=== PATIENT | female | born 1950 | race Caucasian/White ===

== ENCOUNTER → 2020-02-11 13:15 | Outpatient (BNVA) | payer MEDICARE, SELFPAY | PROVIDERS: PCP Nurse Practitioner; Visit Provider Hospitalist | DX: Z76.89 Persons encountering health services in other specified circumstances (principal) | CPT/HCPCS: Q3014 ==

== ENCOUNTER → 2020-05-12 13:00 | Outpatient (BNVA) | payer MEDICARE, SELFPAY | PROVIDERS: PCP Nurse Practitioner; Visit Provider Hospitalist | DX: J45.50 Severe persistent asthma, uncomplicated (principal); J30.9 Allergic rhinitis, unspecified; J40 Bronchitis, not specified as acute or chronic | CPT/HCPCS: 99212 ==

== ENCOUNTER → 2020-09-04 14:17 | Outpatient (BNVA) | payer MEDICARE, SELFPAY | PROVIDERS: PCP Nurse Practitioner; Visit Provider Hospitalist | DX: J30.9 Allergic rhinitis, unspecified (principal); J40 Bronchitis, not specified as acute or chronic; J45.50 Severe persistent asthma, uncomplicated; M62.838 Other muscle spasm | CPT/HCPCS: 99212 ==

== ENCOUNTER → 2020-10-27 13:51 | Outpatient (BNVA) | payer MEDICARE, SELFPAY | PROVIDERS: PCP Nurse Practitioner; Visit Provider Hospitalist | DX: Z01.811 Encounter for preprocedural respiratory examination (principal); J45.40 Moderate persistent asthma, uncomplicated; J30.9 Allergic rhinitis, unspecified; J40 Bronchitis, not specified as acute or chronic; R07.9 Chest pain, unspecified; R63.4 Abnormal weight loss; F32.9 Major depressive disorder, single episode, unspecified; Z88.8 Allergy status to other drugs, medicaments and biological substances; Z79.52 Long term (current) use of systemic steroids | CPT/HCPCS: 99212 ==

== ENCOUNTER → 2021-04-23 13:19 | Outpatient (BNVA) | payer MEDICARE, SELFPAY | PROVIDERS: PCP Nurse Practitioner; Visit Provider Hospitalist | DX: Z23 Encounter for immunization (principal); J45.50 Severe persistent asthma, uncomplicated; J30.9 Allergic rhinitis, unspecified | CPT/HCPCS: 90471; 90732; 99212 ==

== ENCOUNTER → 2022-02-24 10:45 | Outpatient (BNVA) | payer MEDICARE, MEDICAID, SELFPAY | PROVIDERS: PCP Nurse Practitioner; Visit Provider Hospitalist | DX: J45.50 Severe persistent asthma, uncomplicated (principal); J30.9 Allergic rhinitis, unspecified; Z79.899 Other long term (current) drug therapy | CPT/HCPCS: 99212 ==

== ENCOUNTER 2022-10-27 11:17 | Outpatient (AMB) | payer MEDICARE, MEDICAID, SELFPAY ==
[2022-10-27 11:21] VITALS: BP 122/70; PULSE 89; O2SAT 97; BMI 30.3
--- NOTE | 2022-10-27 11:21 | MHC.OFFVIS ---
Intake Vital Signs 10/27/22 11:21 Height 4 ft 11 in Weight 150 lb BMI 30.3 BP 122/70 Blood Pressure Location Lt brachial Position Sitting Pulse 89 Pulse Source Pulse Oximeter Pulse Oximetry (%) 97 Oxygen Delivery Method Room Air Intake Visit Reasons: dyspnea Speech Language Pathologist Prn Required: No Allergies zolpidem [From AMBIEN] Allergy (Severe, Verified 10/27/22 11:24) HALLUCINATIONS HPI HPI Comments History of Present Illness Details The patient is a 72 qlt-yaqy-ojw woman with known moderate persistent asthma in addition to significant allergic rhinitis and allergic asthma. Recently the last month she had worsening respiratory symptoms require prednisone antibiotics. She has been having a productive cough productive of yellow sputum. Overall gotten a lot better. Now she is trying to recover from her surgery that she had in her foot. She has been having to use a cane and also a walker. She is having significant discomfort. She has been very depressed due to this. Her respiratory status has been better overall. She is continue her respiratory regimen. She is continue the theophylline. At this point we have to check a theophylline level. 04/23/2021 the patient is here for a pulmonary follow-up visit. Overall she is doing well. She continues on the allergy shots in addition to Xolair. We had checked her CBC but no evidence of any eosinophilia to suggest any other biologics. She did have pulmonary function studies demonstrating no obstructive nor restrictive ventilatory defects. The patient continues on the Advair. she had been on Daliresp but she stopped it due to adverse effects. However, while being off it she has felt more chest congestion. She felt better on a from a respiratory status. Therefore will go ahead and start her on the lower dose of 250 mcg which she can take daily. If she cannot take it daily she can decrease it to every other day. 02/24/2022 the patient is here for pulmonary follow-up visit. The patient overall has been doing okay. She does complaint of eyes excessive chest congestion with clear white mucus. She typically is clearing her throat because of the congestion. It makes her cough. Moderate severity. She was started on Daliresp but it does not seem to be improving but cough issue. It is also resulting significant weight loss. Therefore she has been using it only every other day or so. But because of the weight loss she is concerned. Therefore will go ahead and stop it. Will try ZTX times a week for a month and see if that is of any benefit. In the meantime she does continue with respiratory therapy and she also continues with her Xolair injections. 10/27/2022 the patient is here for pulmonary follow-up visit. Overall the patient is doing well from a respiratory status. She stopped the Xolair due to insurance issues. Although she is still using or continuing with the allergy shots. has been symptoms have been controlled with current maintenance therapy. She has not required any prednisone. She does use her rescue inhaler about a couple times a week. In addition to that she is been noticing increasing nasal congestion. Resulting a postnasal drip. Moderate severity. She is not using any nasal therapy at this time. [facility] Medical History (Updated 10/27/20 @ 21:13 by Adan Abdi MD) Pre-op chest exam Chronic allergic rhinitis Asthma Social History (Updated 09/04/20 @ 14:42 by Anitra Bro Allie) Patient Tobacco Use Status: Never used Tobacco Review of Systems Const Denies headache(s), Denies night sweats and Reports weight loss ENT Denies change in voice, Denies headache(s), Denies lip swelling, Denies mouth pain, Reports nasal congestion, Reports nasal discharge, Reports post nasal drip and Denies tongue swelling Card Denies chest pain Resp Denies chest congestion, Reports cough and Denies wheezing GI Denies abdominal pain Musc Denies no additional complaints, Reports back pain, Reports myalgias, Reports limited range of motion and Reports muscle cramps Neuro Denies Neuro-related abnormal movements and Denies headache(s) Psych Denies no additional complaints and Reports depression Porter/Lymph Denies easy bleeding and Denies lymphadenopathy Aller/Immun Denies lip swelling, Denies tongue swelling and Denies wheezing Physical Exam Vital Signs: Last Vital Signs Pulse 89 10/27/22 11:21 BP 122/70 10/27/22 11:21 Pulse Ox 97 10/27/22 11:21 Oxygen Delivery Method Room Air 10/27/22 11:21 BMI result Body Mass Index 30.3 Const General: alert Eyes Pupils: Equal, round and reactive pupils present Neck Neck: Yes normal visual inspection, Yes full ROM, Yes no lymphadenopathy and Yes tender Chest Chest palpation & inspection: normal inspection of the chest Resp Auscultation: no wheezes and diminished lung sounds Cardio Rate: regular rate Rhythm: regular rhythm Heart sounds: S1 normal heart sound present and S2 normal heart sound present GI Palpation (GI): Soft to palpation and nontender Auscultation: normal bowel sounds General: Yes no CVA tenderness Back/Spine/Pelvis Back: no CVA tenderness Skin General skin exam: rashes and/or lesions noted Neuro Cranial nerves: Yes Equal, round and reactive pupils present Assessment & Plan Assessment & Plan (1) Chronic allergic rhinitis: Code(s): J30.9 - Allergic rhinitis, unspecified (2) Asthma: Code(s): J45.909 - Unspecified asthma, uncomplicated Qualifiers: Asthma complication type: unspecified Asthma persistence: persistent Asthma severity: severe Qualified Code(s): J45.50 - Severe persistent asthma, uncomplicated Plan Continue Advair HFA continue Spiriva Respimat NATHANAEL as needed start Fluticasone nasal spray stopped Daliresp 250mcg stopped Azithromycin MWF stopped Xolair, still doing allergy shots. If worsens consider dupixent Needs to have CXR if no better or during her f/u visit follow-up in 6 months Medications: New fluticasone propionate 50 mcg/actuation 2 sprays intranasal DAILY 30 days 15.8 mL 11RF J31.0 - Chronic rhinitis Coding Level of Care Code Est Pt Level 4 (06034) Diagnoses Chronic allergic rhinitis J30.9 Severe persistent asthma, unspecified whether complicated J45.50 Asthma complication type: unspecified Asthma persistence: persistent Asthma severity: severe Time Spent (min) 17
== END 2022-10-27 11:39 | disposition home or self-care (01) ==
PROVIDERS: PCP Nurse Practitioner; Visit Provider Hospitalist
DX: J30.9 Allergic rhinitis, unspecified (principal); J45.50 Severe persistent asthma, uncomplicated
CPT/HCPCS: 99214

== ENCOUNTER → 2022-10-27 11:17 | Outpatient (BNVA) | payer MEDICARE, MEDICAID, SELFPAY | PROVIDERS: PCP Nurse Practitioner; Visit Provider Hospitalist | DX: J45.50 Severe persistent asthma, uncomplicated (principal); J30.9 Allergic rhinitis, unspecified | CPT/HCPCS: 99212 ==

== ENCOUNTER 2023-04-29 10:48 | Outpatient (AMB) | payer MEDICARE, MEDICAID, SELFPAY ==
[2023-04-29 10:53] VITALS: BP 120/68; PULSE 75; O2SAT 99; BMI 31.1
--- NOTE | 2023-04-29 10:53 | A.OFFVIS_ITS ---
Intake Vital Signs 04/29/23 10:53 Height 4 ft 11 in Weight 154 lb BMI 31.1 BP 120/68 Blood Pressure Location Lt brachial Position Sitting Pulse 75 Pulse Source Pulse Oximeter Pulse Oximetry (%) 99 Oxygen Delivery Method Room Air Intake Visit Reasons: dyspnea Roulette Dealer Required: No Allergies zolpidem [From AMBIEN] Allergy (Severe, Verified 04/29/23 10:56) HALLUCINATIONS HPI HPI Comments History of Present Illness Details The patient is a 73 vaf-[id number] woman with known moderate persistent asthma in addition to significant allergic rhinitis and allergic asthma. Recently the last month she had worsening respiratory symptoms require prednisone antibiotics. She has been having a productive cough productive of yellow sputum. Overall gotten a lot better. Now she is trying to recover from her surgery that she had in her foot. She has been having to use a cane and also a walker. She is having significant discomfort. She has been very depressed due to this. Her respiratory status has been better overall. She is continue her respiratory regimen. She is continue the theophylline. At this point we have to check a theophylline level. 04/23/2021 the patient is here for a pulmonary follow-up visit. Overall she is doing well. She continues on the allergy shots in addition to Xolair. We had checked her CBC but no evidence of any eosinophilia to suggest any other biologics. She did have pulmonary function studies demonstrating no obstructive nor restrictive ventilatory defects. The patient continues on the Advair. she had been on Daliresp but she stopped it due to adverse effects. However, while being off it she has felt more chest congestion. She felt better on a from a respiratory status. Therefore will go ahead and start her on the lower dose of 250 mcg which she can take daily. If she cannot take it daily she can decrease it to every other day. 02/24/2022 the patient is here for pulmonary follow-up visit. The patient overall has been doing okay. She does complaint of eyes excessive chest congestion with clear white mucus. She typically is clearing her throat because of the congestion. It makes her cough. Moderate severity. She was started on Daliresp but it does not seem to be improving but cough issue. It is also resulting significant weight loss. Therefore she has been using it only every other day or so. But because of the weight loss she is concerned. Therefore will go ahead and stop it. Will try ZTX times a week for a month and see if that is of any benefit. In the meantime she does continue with respiratory therapy and she also continues with her Xolair injections. 04/29/2023 the patient is here for pulmonary follow-up visit. Overall the patient is doing well from a respiratory status. She stopped the Xolair due to insurance issues. Although she is still using or continuing with the allergy shots. has been symptoms have been controlled with current maintenance therapy. She has not required any prednisone. She does use her rescue inhaler about a couple times a week. In addition to that she is been noticing increasing nasal congestion. Resulting a postnasal drip. Moderate severity. She is not using any nasal therapy at this time.No recent imaging to review. [facility] Medical History (Updated 10/27/20 @ 21:13 by Adan Abdi MD) Pre-op chest exam Chronic allergic rhinitis Asthma Social History Patient Tobacco Use Status: Never used Tobacco Review of Systems Const Denies headache(s), Denies night sweats and Reports weight loss ENT Denies change in voice, Denies headache(s), Denies lip swelling, Denies mouth pain, Reports nasal congestion, Reports nasal discharge, Reports post nasal drip and Denies tongue swelling Card Denies chest pain Resp Denies chest congestion, Reports cough and Denies wheezing GI Denies abdominal pain Musc Denies no additional complaints, Reports back pain, Reports myalgias, Reports limited range of motion and Reports muscle cramps Neuro Denies Neuro-related abnormal movements and Denies headache(s) Psych Denies no additional complaints and Reports depression Porter/Lymph Denies easy bleeding and Denies lymphadenopathy Aller/Immun Denies lip swelling, Denies tongue swelling and Denies wheezing Physical Exam Vital Signs: Last Vital Signs Pulse 75 04/29/23 10:53 BP 120/68 04/29/23 10:53 Pulse Ox 99 04/29/23 10:53 Oxygen Delivery Method Room Air 04/29/23 10:53 BMI result Body Mass Index 31.1 Const General: alert Eyes Pupils: Equal, round and reactive pupils present Neck Neck: Yes normal visual inspection, Yes full ROM, Yes no lymphadenopathy and Yes tender Chest Chest palpation & inspection: normal inspection of the chest Resp Auscultation: clear to auscultation bilaterally and no wheezes Cardio Rate: regular rate Rhythm: regular rhythm Heart sounds: S1 normal heart sound present and S2 normal heart sound present GI Palpation (GI): Soft to palpation and nontender Auscultation: normal bowel sounds General: Yes no CVA tenderness Back/Spine/Pelvis Back: no CVA tenderness Skin General skin exam: rashes and/or lesions noted Neuro Cranial nerves: Yes Equal, round and reactive pupils present Assessment & Plan Assessment & Plan (1) Chronic allergic rhinitis: Code(s): J30.9 - Allergic rhinitis, unspecified (2) Asthma: Code(s): J45.909 - Unspecified asthma, uncomplicated Qualifiers: Asthma complication type: unspecified Asthma persistence: persistent Asthma severity: severe Qualified Code(s): J45.50 - Severe persistent asthma, uncomplicated Plan Continue Advair HFA continue Spiriva Respimat NATHANAEL as needed continue Fluticasone nasal spray stopped Xolair, still doing allergy shots. If worsens consider dupixent Needs to have CXR before her f/u visit follow-up in 8-12 months Orders: Orders XR chest 2V 04/29/23 J45.909 - Unspecified asthma, uncomplicated Coding Level of Care Code Est Pt Level 4 (63138) Diagnoses Chronic allergic rhinitis J30.9 Severe persistent asthma, unspecified whether complicated J45.50 Asthma complication type: unspecified Asthma persistence: persistent Asthma severity: severe Time Spent (min) 17
== END 2023-04-29 11:18 | disposition home or self-care (01) ==
PROVIDERS: PCP Nurse Practitioner; Visit Provider Hospitalist
DX: J30.9 Allergic rhinitis, unspecified (principal); J45.50 Severe persistent asthma, uncomplicated
CPT/HCPCS: 99214

== ENCOUNTER → 2023-04-29 10:48 | Outpatient (BNVA) | payer MEDICARE, MEDICAID, SELFPAY | PROVIDERS: PCP Nurse Practitioner; Visit Provider Hospitalist | DX: J45.40 Moderate persistent asthma, uncomplicated (principal); J31.0 Chronic rhinitis | CPT/HCPCS: 99212 ==

== ENCOUNTER 2024-08-02 10:47 | Outpatient (AMB) | payer MEDICARE, MEDICAID, SELFPAY ==
[2024-08-02 10:50] VITALS: BP 130/70; PULSE 84; O2SAT 98; BMI 30.7
--- NOTE | 2024-08-02 10:50 | MHC.OFFVIS ---
Vital Signs 08/02/24 10:50 Height 4 ft 11 in Weight 152 lb 1.903 oz BMI 30.7 BP 130/70 Blood Pressure Location Lt brachial Position Sitting Pulse 84 Pulse Source Pulse Oximeter Pulse Oximetry (%) 98 Oxygen Delivery Method Room Air Intake Visit Reasons: dyspnea Licensed Occupational Therapy Assistant Required: No Allergies zolpidem (From AMBIEN) Allergy (Severe, Verified 08/02/24 10:54) HALLUCINATIONS HPI Comments Details: The patient is a 74 rcb-bpnq-hmy woman with known moderate persistent asthma in addition to significant allergic rhinitis and allergic asthma. Recently the last month she had worsening respiratory symptoms require prednisone antibiotics. She has been having a productive cough productive of yellow sputum. Overall gotten a lot better. Now she is trying to recover from her surgery that she had in her foot. She has been having to use a cane and also a walker. She is having significant discomfort. She has been very depressed due to this. Her respiratory status has been better overall. She is continue her respiratory regimen. She is continue the theophylline. At this point we have to check a theophylline level. 04/23/2021 the patient is here for a pulmonary follow-up visit. Overall she is doing well. She continues on the allergy shots in addition to Xolair. We had checked her CBC but no evidence of any eosinophilia to suggest any other biologics. She did have pulmonary function studies demonstrating no obstructive nor restrictive ventilatory defects. The patient continues on the Advair. she had been on Daliresp but she stopped it due to adverse effects. However, while being off it she has felt more chest congestion. She felt better on a from a respiratory status. Therefore will go ahead and start her on the lower dose of 250 mcg which she can take daily. If she cannot take it daily she can decrease it to every other day. 02/24/2022 the patient is here for pulmonary follow-up visit. The patient overall has been doing okay. She does complaint of eyes excessive chest congestion with clear white mucus. She typically is clearing her throat because of the congestion. It makes her cough. Moderate severity. She was started on Daliresp but it does not seem to be improving but cough issue. It is also resulting significant weight loss. Therefore she has been using it only every other day or so. But because of the weight loss she is concerned. Therefore will go ahead and stop it. Will try ZTX times a week for a month and see if that is of any benefit. In the meantime she does continue with respiratory therapy and she also continues with her Xolair injections. 04/29/2023 the patient is here for pulmonary follow-up visit. Overall the patient is doing well from a respiratory status. She stopped the Xolair due to insurance issues. Although she is still using or continuing with the allergy shots. has been symptoms have been controlled with current maintenance therapy. She has not required any prednisone. She does use her rescue inhaler about a couple times a week. In addition to that she is been noticing increasing nasal congestion. Resulting a postnasal drip. Moderate severity. She is not using any nasal therapy at this time.No recent imaging to review. 08/02/2024 the patient is here for pulmonary follow-up visit. This is a regular follow-up visit. She continues on the Xolair and also continues with the allergy shots. They seem to be very affecting beneficial. She has not required her rescue medicine. She continues her maintenance therapy as prescribed. Will have her undergo a chest x-ray soon to have a follow-up x-ray since we have not had 1 in the few years. She has also needs to get an updated pneumonia vaccine and also an updated pertussis vaccine. She will get that at the pharmacy. She will continue with the current respiratory therapy. She denies any other complaints. Will follow-up in a year's time. If her x-ray is abnormal I will let her know for any additional testing. [facility] Medical History (Updated 10/27/20 @ 21:13 by Adan Abdi MD) Pre-op chest exam Chronic allergic rhinitis Asthma Social History Patient Tobacco Use Status: Never used Tobacco Review of Systems Const Denies headache(s), Denies night sweats and Reports weight loss ENT Denies change in voice, Denies headache(s), Denies lip swelling, Denies mouth pain, Reports nasal congestion, Reports nasal discharge, Reports post nasal drip and Denies tongue swelling Card Denies chest pain Resp Denies chest congestion, Reports cough and Denies wheezing GI Denies abdominal pain Musc Denies no additional complaints, Reports back pain, Reports myalgias, Reports limited range of motion and Reports muscle cramps Neuro Denies Neuro-related abnormal movements and Denies headache(s) Psych Denies no additional complaints and Reports depression Porter/Lymph Denies easy bleeding and Denies lymphadenopathy Aller/Immun Denies lip swelling, Denies tongue swelling and Denies wheezing Physical Exam Vital Signs: Last Vital Signs Pulse 84 08/02/24 10:50 BP 130/70 08/02/24 10:50 Pulse Ox 98 08/02/24 10:50 Oxygen Delivery Method Room Air 08/02/24 10:50 BMI result Body Mass Index 30.7 Const General: alert Eyes Pupils: Equal, round and reactive pupils present Neck Neck: Yes normal visual inspection, Yes full ROM, Yes no lymphadenopathy and Yes tender Chest Chest palpation & inspection: normal inspection of the chest Resp Auscultation: clear to auscultation bilaterally and no wheezes Cardio Rate: regular rate Rhythm: regular rhythm Heart sounds: S1 normal heart sound present and S2 normal heart sound present GI Palpation (GI): Soft to palpation and nontender Auscultation: normal bowel sounds General: Yes no CVA tenderness Back/Spine/Pelvis Back: no CVA tenderness Skin General skin exam: rashes and/or lesions noted Neuro Cranial nerves: Yes Equal, round and reactive pupils present Assessment & Plan Assessment & Plan (1) Chronic allergic rhinitis: Code(s): J30.9 - Allergic rhinitis, unspecified Category: Medical (2) Asthma: Code(s): J45.909 - Unspecified asthma, uncomplicated Category: Medical Qualifiers: Asthma complication type: unspecified Asthma persistence: persistent Asthma severity: severe Qualified Code(s): J45.50 - Severe persistent asthma, uncomplicated Plan Continue Advair HFA continue Spiriva Respimat NATHANAEL as needed continue Fluticasone nasal spray Xolair, still doing allergy shots. If worsens consider dupixent Needs to have CXR before her f/u visit follow-up in 8-12 months Orders: Orders XR chest 2V Today J45.50 - Severe persistent asthma, uncomplicated Coding Level of Care Code Est Pt Level 4 (44861) Diagnoses Chronic allergic rhinitis J30.9 Severe persistent asthma, unspecified whether complicated J45.50 Asthma complication type: unspecified Asthma persistence: persistent Asthma severity: severe Time Spent (min) 16
--- OUTSIDE RECORDS SUMMARY | 2024-08-02 12:40 | XMS_ITS | Clinical Summary ---
Author Organization [facility] Address [address] [place] [address] Care Team Providers Care Cardiovascular Physician Assistant Name Role Phone Unavailable Primary Care Provider Unavailabl e Social History Tobacco Use Types Packs/Day Years Used Date Smoking Tobacco: Never Assessed Comments Unknown Sex and Gender Information Value Date Recorded Sex Assigned at Not on file Legal Sex Female 4:13 PM EDT Gender Identity Not on file Sexual Orientation Not on file Plan of Treatment Health Maintenance Due Date Last Done Comments Hepatitis C Virus Screening 1950 DTaP/Tdap/Td Vaccines (1 - Tdap) 1970 Pneumococcal Vaccines 50+ (1 of 1 - PCV) 2001 Zoster (Shingles) Vaccine (1 of 2) 2001 COVID-19 Vaccine ( - 2023-2 5 season) 2023 RSV Vaccine 60 years and old er and Patients (1 - 1-dose 75+ series) 2026 Hepatitis B Vaccines Aged Out No long er eligible based on patient's age to complete this topic
== END 2024-08-02 11:07 | disposition home or self-care (01) ==
LOC: HO.HPS 10:47
PROVIDERS: PCP Nurse Practitioner; Visit Provider Hospitalist
DX: J30.9 Allergic rhinitis, unspecified (principal); J45.50 Severe persistent asthma, uncomplicated
CPT/HCPCS: 99214

== ENCOUNTER → 2024-08-02 10:47 | Outpatient (BNVA) | payer MEDICARE, MEDICAID, SELFPAY | PROVIDERS: PCP Nurse Practitioner; Visit Provider Hospitalist | DX: J45.50 Severe persistent asthma, uncomplicated (principal); J30.9 Allergic rhinitis, unspecified | CPT/HCPCS: 99212 ==